=== PATIENT | female | born 1980 | race African-American/Black ===

== ENCOUNTER 2017-04-24 13:08 | Emergency (ER) | payer OTHER | END 2017-04-24 14:24 | disposition home or self-care (01) | LOC: ER 13:08 | DX: S80.02XA Contusion of left knee, initial encounter (principal); Z91.040 Latex allergy status; V47.5XXA Car driver injured in collision with fixed or stationary object in traffic accident, initial encounter; Y92.488 Other paved roadways as the place of occurrence of the external cause; Y93.89 Activity, other specified; Y99.8 Other external cause status | CPT/HCPCS: 73562; 99284-25 ==